=== PATIENT | male | born 1955 | race Caucasian/White ===

== ENCOUNTER → 2017-06-01 | Outpatient (CLI) | payer OTHER ==
[~2017-06-01] MED LIST: ATV2 PO; GADAVIST IV PRN
--- NOTE | 2017-06-01 12:41 | DIAGNOSTIC IMAGING REPORT ---
PROSTATE MRI COMBO CLINICAL HISTORY: 62 years-old Male presenting with R97.20 enlarged prostate and elevated PSA. History of negative biopsies 6 years ago. TECHNIQUE: Multisequence, multiplanar MR imaging of the prostate was performed before and after the administration of intravenous contrast. Additional postprocessing was performed on a separate [employer] workstation by the radiologist for 3-D volumetric segmentation of the prostate and contouring of region(s) of interest (FRITZ) for targeting. IV contrast: The patient was administered 9 cc of intravenous Gadavist COMPARISON: None. FINDINGS: Prostate: The prostate measures 5.2 x 4.6 x 5.2 cm cm (DynaCAD prostate boundary segmentation volume 58.5 mL). Moderate changes of benign prostatic hyperplasia. Precontrast T1 weighted imaging demonstrates no evidence of intrinsic T1 hyperintensity to suggest hemorrhage. There are no suspicious foci of restricted water diffusion within the peripheral zone. A nonmass-like focus of decreased T2 signal within the left peripheral zone, likely represent an area of scarring. Within the transitional/central zone, there are no suspicious masses and no areas of suspicious restricted water diffusion. PI-RADS: 2. Clinically significant cancer is unlikely due to be present. Seminal vesicles normal. Bladder: Normal. Bowel: There is sigmoid diverticulosis. Peritoneum: No free fluid in the pelvis. Lymph nodes: No lymphadenopathy in the visualized portion of the pelvis. Vasculature: Iliac vessels patent. Abdominal wall: Normal. Osseous structures: Normal bone marrow signal intensity. IMPRESSION: 1. BI-RADS 2 examination. A clinically significant cancer is unlikely to be present. 2. Benign prostatic hyperplasia. Electronically signed by: Dheeraj Loya M.D. 06/01/2017 12:40 PM Dictated Date/Time: 06/01/2017 12:25 PM
== END | disposition home or self-care (01) ==
LOC: C.MRIBC 10:21
PROVIDERS: ATTEND Urology
DX: N40.1 Benign prostatic hyperplasia with lower urinary tract symptoms (principal); R97.20 Elevated prostate specific antigen [PSA]

== ENCOUNTER 2022-06-27 05:10 | Observation (INO) ==
--- NOTE | 2022-06-01 11:00 | PAT Medication Instructions ---
Medication Instructions Date of Service June 01, 2022 Home Medications Medication Instructions Recorded sildenafil 100 mg tablet 100 mg PO DAILY PRN sexual 07/20/21 activity #20 tabs lorazepam 2 mg tablet (Ativan) 2 mg PO HS naproxen sodium 220 mg capsule (Aleve) 220 mg PO Q8H PRN Pain sildenafil 100 mg tablet 100 mg PO DAILY PRN sexual activity tamsulosin 0.4 mg capsule (Flomax) 0.4 mg PO HS ASK your surgeon for instructions naproxen sodium 220 mg capsule (Aleve) 220 mg PO Q8H PRN Pain STOP taking 24 hours before surgery sildenafil 100 mg tablet 100 mg PO DAILY PRN sexual activity Take evening before surgery lorazepam 2 mg tablet (Ativan) 2 mg PO HS tamsulosin 0.4 mg capsule (Flomax) 0.4 mg PO HS OTHERWISE NOTHING TO EAT OR DRINK AFTER MIDNIGHT Other Notes If you have any questions please call us at [phone] or [phone] or [phone] or [phone]
--- NOTE | 2022-06-05 10:03 | History & Physical Report ---
Date of Service June 05, 2022 date of surgery: 06/27/22 Procedure: Right Knee Poly Exchange Surgeon: Osorio Guardado Assessment & Plan (1) Painful total knee replacement, right: Plan: Patient presented for preop evaluation prior to his right knee poly exchange. He is having pain in his knee since January, has a history of knee replacement in 2010. CT scan which did not show any acute findings of his knee. Discussed care with Dr. Guardado, he like to proceed with surgical invention. Plan to be right knee arthrotomy with poly exchange. Plan on aspirin 81 mg twice a day for 1 month postop. Patient like to be outpatient with home health physical therapy follow-up 2 weeks after surgery, sooner if he is having problems The risks and benefits have been discussed including, but not limited to, risk of infection, nerve injury, stiffness, loss of motion, failure to improve, etc. Reasonable outcomes and options of treatment were discussed. An explanation of appropriate alternatives to the procedure that may be advantageous were discussed and their risks and benefits, as well as the risks and benefits of not proceeding with treatment. I offered to answer any additional inquiries concerning the treatment involved. All the patient's questions were answered. The patient is agreeable, understanding of the treatment plan and alternatives, and wishes to proceed with the treatment plan. History of Present Illness Chief Complaint: right knee pain Primary Care Provider: Cora Smith Sai Juares is a pleasant 67-year-old male who presents for preop evaluation prior to his right knee poly exchange. He has a history of a right total knee replacement in 2010 and subsequently had manipulation under anesthesia a few months later. He was doing very well up until January of this past year and began having increased pain. He underwent CT scan did not show any acute findings, on examination he did have laxity noted with valgus and varus stress. He discussed these findings with Dr. Guardado, would like to proceed with right knee poly exchange Allergies Allergy/AdvReac Type Severity Reaction Status Date / Time No Known Allergies Allergy Verified 06/01/22 08:54 Home Medications Medication Instructions Recorded Confirmed Type lorazepam 2 mg tablet (Ativan) 2 mg PO HS 09/10/18 06/01/22 History naproxen sodium 220 mg capsule 220 mg PO Q8H PRN Pain 09/10/18 06/01/22 History (Aleve) sildenafil 100 mg tablet 100 mg PO DAILY PRN sexual 07/20/21 06/01/22 Rx activity #20 tabs tamsulosin 0.4 mg capsule (Flomax) 0.4 mg PO HS 06/01/22 06/01/22 History Past Med/Surg History Medical History BPH (benign prostatic hyperplasia) Hx of fracture of pelvis 20+ YRS AGO NO SURGERY Hx of migraines Surgical History H/O blepharoplasty H/O elbow surgery R/L TENDON SURGERY Hamstring tear LEFT>REPAIRED History of colonoscopy History of esophagogastroduodenoscopy (EGD) History of tonsillectomy History of tooth extraction History of total knee replacement RIGHT Hx of prostate biopsy Presence of IVC filter PLACED 20+ YRS AGO S/P PELVIC FRACTURE S/P surgical manipulation of knee joint RT Family History Father No problems noted. Sister Family hx of colon cancer Grandfather (Maternal) Family hx of colon cancer Other No family history of adverse response to anesthesia Social History Smoking Status: Never smoker Second Hand Exposure: No; Hx Alcohol Use: No Hx Substance Use: No Preferred Language: Barbadian Communication Ability: Effective Cooper Apprentice Required: No Beliefs That Will Affect Care: None Current Living Situation: Alone Feels Safe at Home: Yes Safety Concerns: Feels Safe At This Time Assistive Devices: None Review of Systems Review of Systems: All systems reviewed & are unremarkable except as noted in HPI & below Constitutional: no fever, no chills and no sweats Respiratory: no cough and no dyspnea Cardiovascular: no chest pain, no dyspnea and no orthopnea Gastrointestinal: no abdominal pain, no nausea and no vomiting Musculoskeletal: as per Subjective / HPI Physical Exam Physical Exam: HT: 6ft WT: 77.1KG Constitutional: WD/WN, vitals as above no acute distress Respiratory: normal respiratory effort, lungs clear to auscultation no respiratory distress, no labored breathing and does not use accessory muscles Cardiovascular: RRR, no murmur, no edema Gastrointestinal (Abdomen): normal bowel sounds, soft, nontender, no hepatosplenomegaly Musculoskeletal: Knee: + knee abnormal to inspection (RIGHT KNEE: ), + surgical incision (well healed portals), + limited ROM of knee (ROM 0/0/110) and + joint line tenderness (medial joint line); no deformity, no effusion (+1 effusion), no skin erythema, no ecchymosis, no crepitation with knee ROM, no valgus laxity and no varus laxity Results & Data Results & Data Diagnostic Findings Radiographs reveal a cemented total knee replacement arthroplasty in acceptable position and alignment. No evidence of loosening or loss of fixation is noted. The patella is tracking well. ASSESSMENT: status post cemented posterior stabilized total knee replacement arthroplasty.
--- NOTE | 2022-06-06 13:31 | Anesthesiology Consultation ---
Date of Service June 06, 2022 Assessment & Plan (1) Encounter for pre-operative examination: - COVID positive 06/06/22: pt was notified of result and to follow current CDC quarantine guidelines, to contact his PCP. Pt will be > 15 days from surgery if symptoms remain mild and resolve by day before surgery. PAT testing faxed to PCP. - Pt was advised to contact his PCP regarding pharyngitis and low grade temperature today. He is to call office if symptoms are not resolved prior to surgery. - Outpatient joint pathway: Per surgeon and patient, plan for outpatient joint program. Upon review of chart and discussion with Dr. Mascorro, patient is acceptable outpatient joint candidate for this procedure. Kyree with surgeon's office. Chart Review Chart Review: Acceptable Risk for Surgery and Patient seen in Pre Admission Testing Teaching & Discussion Pre-Anesthesia Teaching/Discussion Notes: Instructed NPO after midnight before surgery, except medications with 15 cc of water. Medication instructions provided according to the PAT guidelines. History Surgery Operation Date: 06/27/22 12:15 Proposed Procedures p OP: Right Knee Poly Exchange - Osorio Guardado DO Height/Weight Height: 6 ft Weight: 77.111 kg Allergies Allergy/AdvReac Type Severity Reaction Status Date / Time No Known Allergies Allergy Verified 06/01/22 08:54 Medications Home Medications Medication Instructions Recorded Confirmed Last Taken lorazepam 2 mg tablet (Ativan) 2 mg PO HS 09/10/18 06/01/22 09/25/18 21:00 naproxen sodium 220 mg capsule 220 mg PO Q8H PRN Pain 09/10/18 06/01/22 Unknown (Aleve) sildenafil 100 mg tablet 100 mg PO DAILY PRN sexual 07/20/21 06/01/22 Unknown activity #20 tabs tamsulosin 0.4 mg capsule (Flomax) 0.4 mg PO HS 06/01/22 06/01/22 Unknown Past Medical History Medical History BPH (benign prostatic hyperplasia) Hx of fracture of pelvis 20+ YRS AGO NO SURGERY Hx of migraines Patient denies h/o stroke, seizures, heart attack, heart failure, DM, HTN, blood clots or blood transfusions. Exercise / Class Metabolic Activity II 4-5 Yardwork/Stairs/Walk up hill (denies chest discomfort or shortness of breath with 1 FOS) Past Family History Family History Father No problems noted. Sister Family hx of colon cancer Grandfather (Maternal) Family hx of colon cancer Other No family history of adverse response to anesthesia Past Surgical History Surgical History H/O blepharoplasty H/O elbow surgery R/L TENDON SURGERY Hamstring tear LEFT>REPAIRED History of colonoscopy History of esophagogastroduodenoscopy (EGD) History of tonsillectomy History of tooth extraction History of total knee replacement RIGHT Hx of prostate biopsy Presence of IVC filter PLACED 20+ YRS AGO S/P PELVIC FRACTURE S/P surgical manipulation of knee joint RT Past Anesthesia History No Hx of Anesthesia Complications and No Family Hx of Anesthesia Complications History of PONV No Hx of PONV and Hx of Motion Sickness Social History Smoking Status: Never smoker Do You Dip or Chew Tobacco: No Hx Alcohol Use: No Hx Substance Use: No substance use type: does not use Review of Systems Pt woke with pharyngitis this morning, denies any additional symptoms. Patient denies chest pain, shortness of breath, dyspnea on exertion, snoring, witnessed apneas, reflux, fever, chills, cough, wheezing, or palpitations. Physical Exam Vital Signs Vitals BP 128/79 P 67 TEMP 99.2 SP02 97% on RA RESP 18 Physical Full cervical extension range of motion without pain TMD 3.5 finger breadths Mallampati Score 2, nonerythematous, no exudate Dentition: left upper side implant; denies chipped or loose teeth, caps/crowns or bridges Lungs: normal respiratory effort. Clear throughout to auscultation, no adventitious breath sounds Cardiac: regular rate and rhythm, no murmurs noted Carotid arteries: negative bruit bilat Lab Results Anesthesia Preop Results Results Anesthesia Widget: WBC 6.36 K/ul (4.8-10.8) 06/06/22 Hgb 14.5 g/dl (14.0-18.0) 06/06/22 Hct 43.1 % (42.0-52.0) 06/06/22 Plt 163 K/uL (130-400) 06/06/22 Na 137 mmol/L (136-145) 06/06/22 K 4.4 mmol/L (3.5-5.1) 06/06/22 Cl 102 mmol/L (98-107) 06/06/22 CO2 32 mmol/L (21-32) 06/06/22 BUN 13 mg/dl (6-23) 06/06/22 Creat 0.76 mg/dl (0.6-1.4) 06/06/22 Glucose Level 97 mg/dl (70-99(Fasting)) 06/06/22 PT 10.8 Seconds (9.0-12.0) 06/06/22 PTT 29.6 Seconds (21.0-31.0) 06/06/22 INR 1.0 (0.9-1.1) 06/06/22 HA1c 5.5 % (4.5-5.6) 06/06/22 Urine Color Yellow 06/06/22 Urine Appearance Clear (Clear) 06/06/22 Urine pH 6.5 (4.5-7.5) 06/06/22 Urine Specific [place] 1.023 (1.000-1.030) 06/06/22 Urine Protein Negative (Negative) 06/06/22 Urine Glucose (UA) Negative (Negative) 06/06/22 Urine Ketones Negative (Negative) 06/06/22 Urine Blood Negative (Negative) 06/06/22 Urine Nitrite Negative (Negative) 06/06/22 Urine Bilirubin Negative (Negative) 06/06/22 Urine Urobilinogen Negative (Negative) 06/06/22 Urine Leukocyte Esterase Trace (Negative) H 06/06/22 Urine WBC (Auto) 1-5 /hpf (0-5) 06/06/22 Urine RBC (Auto) 0-4 /hpf (0-4) 06/06/22 Urine Hyaline Casts (Auto) 0 /lpf (0-5) 06/06/22 Urine Epithelial Cells (Auto) 0-5 /lpf (0-5) 06/06/22 Urine Bacteria (Auto) Negative (Negative) 06/06/22 COVID-19 PCR POSITIVE (Negative) A* 06/06/22 Blood Type A Positive 06/06/22 Antibody Screen NEGATIVE 06/06/22 Testing Electrocardiogram Date: 06/06/22 NSR, rate 61 bpm Chest X-Ray Date: 06/06/22 The cardiomediastinal silhouette is unremarkable. The lungs and pleural spaces are clear. There is no pneumothorax. There are healed left-sided rib fractures. IMPRESSION: No active disease in the chest. COVID-19 Risk Screen Screening Information COVID-19 Screen Date: 06/06/22 Exposure 21 Days Family/Household +COVID Last 21 Days: No Exposure 10 Days Any COVID Exposure Last 10 Days: No Symptoms Last 10 Days Experienced COVID Sx Last 10 Days: Yes Covid Sx 10 Day Pathway: If patient has symptoms, they should follow up with their PCP/surgeon to be COVID -19 tested and for further instructions related to their illness. Order COVID Testing COVID-19 Test Result pathway: * If the COVID Test is Negative, other risk factors are acceptable, and the patient is feeling well; proceed with procedure. * If the COVID-19 test is Positive: * Elective procedures will be cancelled/rescheduled per Policy 1096. * Urgent or Emergent procedures will need documentation that the procedure is medically necessary and precautions implemented per Policy 1096. Policies and Procedures Refer to Policy and Procedure 1096 for Initiation & Discontinuation of Transmission-Based Precautions for Confirmed and Suspected SARS-CoV-2 Infection which can be found on the Intranet in the Clinical Resources Manual by clicking on the link below: [email or web address] [email or web address]%[email or web address] [email or web address]#search=discontinuation%20of%20Transmission%2DBased + COVID 0-90 Days COVID + in Last 0-90 Days: Yes + COVID Test 0-10 Day: Yes +Covid 0-90 Day Pathway: Validate type of COVID-19 test (must secure test results for patient chart) * The patients test result MUST be a NAAT (i.e., molecular test not an antigen test). * NO other COVID-19 testing needed pre-op or day of surgery inside the 90 day window if prior positive test is acceptable per hospital Policy. Note: Home tests or antigen tests are NOT accepted per hospital policy. Provider to place an order for a MELANI (i.e., molecular test not an antigen test). Then proceed to the appropriate pathway based on the testing results. Elective Case +COVID-19 in the last 0-10 Days * Cancel/reschedule using Policy 1096. * Reschedule procedure 11 days if asymptomatic. * Reschedule procedure 15 days if mild symptoms. * Reschedule procedure 21 days if moderate to severe symptoms. Elective Case +COVID-19 in the last 11-90 Days * Proceed with procedure according to Policy 1096 * Reschedule procedure 11 days if asymptomatic. * Reschedule procedure 15 days if mild symptoms. * Reschedule procedure 21 days if moderate to severe symptoms. Urgent or Emergent Case * Provider will provide medical necessity statement in the H&P and patient will be scheduled on the (+) COVID/PUI pathway per hospital policy. Policies and Procedures Refer to Policy and Procedure 1096 for Initiation & Discontinuation of Transmission-Based Precautions for Confirmed and Suspected SARS-CoV-2 Infection which can be found on the Intranet in the Clinical Resources Manual by clicking on the link below: [email or web address]% 20and%20Discontinuation%20of%20Tr [email or web address].pdf#search=discontinuation%20of%20Transmission%2DBased
[2022-06-27] MEDS ORDERED: FAMOTIDINE 20 MG TAB PO SCH (06:00)
[2022-06-27] MEDS ORDERED: TRANEXAMIC ACID 1,000 MG **IV Intra-op IV SCH (06:00)
[2022-06-27] MEDS ORDERED: ceFAZolin 2000MG 2,000 MG/15 ML SYR IV SCH (06:00)
[2022-06-27] MEDS ORDERED: ACETAMINOPHEN 500 MG TAB PO SCH (06:00)
[2022-06-27] MEDS ORDERED: GABAPENTIN 300 MG CAP PO SCH (06:00)
[2022-06-27] MEDS ORDERED: LR 500ML BOLUS, THEN 15ML/HR IV SCH (06:00)
[2022-06-27] MEDS ORDERED: CeleBREX 200 MG CAP PO SCH (06:00)
[2022-06-27] MEDS ORDERED: dexAMETHasone 4 MG TAB PO SCH (06:00)
[2022-06-27] MEDS ORDERED: TRANEXAMIC ACID 1,000 MG **IV Pre-op IV SCH (06:00)
[2022-06-27] MEDS ORDERED: METOCLOPRAMIDE HCL 10 MG TABLET PO SCH (06:00)
[2022-06-27] MEDS ORDERED: ROPIVACAINE 0.5% 5 MG/ML 30 ML VIAL ONE (06:28)
[2022-06-27] MEDS ORDERED: fentaNYL citrate PF 100 MCG/2 ML VIAL ONE (06:41)
[2022-06-27] MEDS ORDERED: MIDAZOLAM HCL 1 MG/ML 2ML VIAL ONE ×2 (06:41→06:47)
[2022-06-27] MEDS ORDERED: ONDANSETRON INJ 2 MG/ML 2 ML VIAL ONE (06:46)
[2022-06-27] MEDS ORDERED: PROPOFOL IV EMULSION 10 MG/ML 20 ML VIAL IV ONE ×2 (06:46→07:45)
[2022-06-27] MEDS ORDERED: ATROPINE SULFATE 0.1 MG/ML 10ML SYR IV PRN (06:47)
[2022-06-27] MEDS ORDERED: HYDROmorphone INJ 2 MG/ML SYR/VIAL IV PRN (06:47)
[2022-06-27] MEDS ORDERED: ONDANSETRON INJ 2 MG/ML 2 ML VIAL IV PRN ×2 (06:47→11:45)
[2022-06-27] MEDS ORDERED: fentaNYL citrate PF 100 MCG/2 ML VIAL IV PRN (06:47)
[2022-06-27] MEDS ORDERED: ePHEDrine sulfate 50 MG/ML AMP IV PRN (06:47)
--- NOTE | 2022-06-27 07:07 | History & Physical Bridge Note ---
Date of Service June 27, 2022 History & Physical Bridge Note I have examined the patient, reviewed the History & Physical and in the interval since the performance of the History & Physical I have noted the following changes of clinical significance: no changes noted
[2022-06-27] MEDS ORDERED: ePHEDrine sulfate 50 MG/ML SYR ONE (07:45)
--- NOTE | 2022-06-27 08:11 | Operative Report ---
Post Operative Report Pre & Post Diagnosis Operation Date: 06/27/22 07:15 Pre-Op Diagnosis: Painful right total knee replacement Post-Op Diagnosis: Painful right total knee replacement I identified the patient and participated in the time-out.: Yes Procedure Operation Date: 06/27/22 07:15 Actual Procedures p Right Knee Poly Exchange(Right) revision poly component to a size 18 post for broken post- Osorio Guardado DO Surgeon Osorio Guardado DO Director Of Partner Marketing MARY Kendrick Estimated Blood Loss 5 Findings Consistent with Post-Op Diagnosis Patient presents with sudden onset of instability about his right total knee arthroplasty had been doing quite well for years and presents after having had a sudden change instability and exam was consistent of a broken post thyroid surgery this was verified and confirmed with broken post sitting in the intercondylar notch there is marked laxity both medial lateral collaterals Specimens Broken poly- Drains Medium bore Hemovac Anesthesia Type MAC Spinal Regional Complications none Disposition Accompanied Patient To Recovery: No Disposition: Recovery Room Indications Patient presents with a sudden onset instability after breaking his post involving his right total knee arthroplasty journey 2 patient presents for polychange Description of Procedure After injection of regional anesthesia the right lower extremity subsequently examined there is marked medial lateral collateral laxity with exam consistent with that of no solid endpoint opposed consistent with that of a broken post which was verified time of surgery after initiation of anesthesia the right lower extremity socially prepped and draped you sterile fashion surgeon's type anterior midline incision was made. Medial parapatellar incision was made the broken post was immediately identified the broken polywas removed the wound was irrigated copious muscle sterile saline solution Poly's size 15 and subsequent size 18 were trialed size 18 gave excellent stability full extension full flexion excellent stability throughout all mid ranges of flexion wound was then irrigated copious muscle sterile saline solution the final poly was placed and fixed into the tibial insert the medial parapatellar incision was closed #1 Vicryl in a running V lock subcu was closed with 2-0 Vicryl skin was closed with a running V lock a sterile compressive dressing was placed patient was taken to recovery in stable condition please note MARY Kendrick was active and has been case dissipated and exposure change mental poly and wound closure was necessary for the case I attest to the content of the Intraoperative Record and any orders documented therein. Any exceptions are noted below.
--- NOTE | 2022-06-27 09:36 | XRay Report ---
XR knee RT 1 or 2V routine HISTORY: 67 years-old Male Surgical Post Op right knee arthroplasty COMPARISON: 04/25/2022 TECHNIQUE: 2 views the right knee FINDINGS: Total joint arthroplasty with patellar resurfacing. Corticated ossification adjacent to the medial fe moral condyle. Expected postoperative soft tissue swelling with deep tissue air. No acute fracture, d islocation or unexpected opaque foreign body. IMPRESSION: Satisfactory alignment of the right knee total joint arthroplasty. ACT 112: Negative or not required by law. The above report was generated using voice recognition software. It may contain grammatical, syntax o r spelling errors. Electronically signed by: Marcin Ramos M.D. 06/27/2022 9:35 AM
--- NOTE | 2022-06-27 09:41 | Anesthesiology Progress Note ---
Date of Service June 27, 2022 Anesthesia Post Procedure Vital Signs Vital Signs: Temp Pulse Pulse Resp BP Pulse Ox O2 Del Method 06/27/22 09:10 53 L 13 119/79 98 Room Air 06/27/22 09:00 56 L 20 125/81 98 Room Air 06/27/22 09:30 36.3 C L 49 L 14 109/76 100 Room Air 06/27/22 09:20 54 L 13 116/77 98 Room Air 06/27/22 08:50 52 L 13 114/75 100 Oxymask 06/27/22 08:43 36.4 C L 55 L 14 126/76 99 Oxymask 06/27/22 05:41 36.5 C 53 L 20 118/73 98 Room Air O2 Flow Rate 06/27/22 09:10 06/27/22 09:00 06/27/22 09:30 06/27/22 09:20 06/27/22 08:50 3 06/27/22 08:43 5 06/27/22 05:41 Transfer of Care Handoff Completed per policy Notes Mental Status: alert / awake / arousable and participated in evaluation Patient Amnestic to Procedure: Yes Nausea / Vomiting: adequately controlled Pain: adequately controlled Airway Patency, RR, SpO2: stable & adequate BP & HR: stable & adequate Hydration State: stable & adequate Neuraxial Anesthesia: was administered and sensory block is resolving Anesthetic Complications: no major complications apparent and Pt Satisfied with anesthetic care
[2022-06-27] MEDS ORDERED: HYDROmorphone INJ 1 MG/ML SYRINGE IV PRN (11:45)
[2022-06-27] MEDS ORDERED: METOCLOPRAMIDE HCL INJ 5 MG/ML 2 ML VIAL IV PRN (11:45)
[2022-06-27] MEDS ORDERED: SODIUM CHLORIDE 0.9% 1000ML 1,000 ML IV SCH (11:45)
[2022-06-27] MEDS ORDERED: MAGNESIUM HYDROXIDE SUSP 30 ML UDC PO PRN (11:45)
[2022-06-27] MEDS ORDERED: bisacodyL 10 MG SUPP PR PRN (11:45)
[2022-06-27] MEDS ORDERED: diphenhydrAMINE Capsule 25 MG CAP PO PRN (11:45)
[2022-06-27] MEDS ORDERED: NALOXONE HCL 0.4 MG/1 ML VIAL/CARP IV PRN (11:45)
[2022-06-27] MEDS: ASPIRIN 81 MG ECTAB PO SCH ×2 (12:28→20:55)
[2022-06-27] MEDS: MULTIVITAMIN TAB PO SCH (12:28)
[2022-06-27] MEDS: DOCUSATE SODIUM 100 MG CAP PO SCH ×2 (12:28→20:55)
[2022-06-27] MEDS: KETOROLAC TROMETHAMINE 15 MG/ML VIAL IV SCH ×3 (12:50→23:00)
[2022-06-27] MEDS: ceFAZolin 2000MG 2,000 MG/15 ML SYR IV SCH ×2 (15:01→23:00)
[2022-06-27] MEDS: ACETAMINOPHEN 500 MG TAB PO SCH ×2 (15:16→23:02)
--- NOTE | 2022-06-27 15:37 | Urology Consultation ---
Date of Consultation June 27, 2022 Assessment & Plan (1) Acute urinary retention: (2) BPH (benign prostatic hyperplasia): Plan 67-year-old male admitted status post Right Knee Poly Exchange earlier today who developed postop urinary retention. Patient has noted difficulty with urination following his procedure earlier today. He was bladder scanned for 876ml earlier this morning, straight cathed for 800 mL. Since then, he has voided only a small amount and notes significant bladder discomfort. We discussed options for management of urinary retention. Discussed intermittent catheterizations versus indwelling john catheter. Also discussed further outpatient work-up with cystoscopy. Patient prefers John catheter placement for now. Nursing aware. We discussed that he could possibly have a voiding trial before discharge or we can arrange a voiding trial in our office as an outpatient. Will also arrange outpatient cystoscopy with Dr. Liu for further work-up. Continue tamsulosin. Thank you for allowing us to participate in the acute care of Mr. Bowden. Please contact us with any further questions, concerns, or changes in patient status. History of Present Illness Reason for Consultation: Urinary retention Attending Physician: Osorio Guardado, DO History of Present Illness 67-year-old male admitted status post Right Knee Poly Exchange earlier today with Dr. Guardado. Has previously followed with Dr. Liu. Hx of BPH and urinary retention. On tamsulosin. Patient has been voiding small amounts following surgery earlier today. He was bladder scanned for 876ml earlier this morning, straight cathed for 800 mL. Since then, he has voided approximately 100 mL. He reports hesitancy and having to push/strain. Stream is slow/weak. He does report bothersome urinary symptoms at baseline. He has been dealing with slow/weak stream and hesitancy at home. He does tell me he has previously straight cath for urinary retention issues. Allergies Allergy/AdvReac Type Severity Reaction Status Date / Time No Known Allergies Allergy Verified 06/27/22 05:37 Home Medications Medication Instructions Recorded Confirmed Type lorazepam 2 mg tablet (Ativan) 2 mg PO HS 09/10/18 06/27/22 History naproxen sodium 220 mg capsule 220 mg PO Q8H PRN Pain 09/10/18 06/27/22 History (Aleve) sildenafil 100 mg tablet 100 mg PO DAILY PRN sexual 07/20/21 06/27/22 Rx activity #20 tabs tamsulosin 0.4 mg capsule (Flomax) 0.4 mg PO HS 06/01/22 06/27/22 History Patient History Medical History BPH (benign prostatic hyperplasia) Hx of fracture of pelvis 20+ YRS AGO NO SURGERY Hx of migraines Surgical History H/O blepharoplasty H/O elbow surgery R/L TENDON SURGERY Hamstring tear LEFT>REPAIRED History of colonoscopy History of esophagogastroduodenoscopy (EGD) History of tonsillectomy History of tooth extraction History of total knee replacement RIGHT Hx of prostate biopsy Presence of IVC filter PLACED 20+ YRS AGO S/P PELVIC FRACTURE S/P surgical manipulation of knee joint RT Family History Father No problems noted. Sister Family hx of colon cancer Grandfather (Maternal) Family hx of colon cancer Other No family history of adverse response to anesthesia Social History Smoking Status: Never smoker Second Hand Exposure: No; Hx Alcohol Use: No Hx Substance Use: No Preferred Language: Luxembourgish Communication Ability: Effective Lift Supervisor Required: No Beliefs That Will Affect Care: None Current Living Situation: Alone Feels Safe at Home: Yes Assistive Devices: Cane and Walker Review of Systems Review of Systems: All systems reviewed & are unremarkable except as noted in HPI & below Physical Exam Constitutional: well developed and well nourished; no acute distress Respiratory: normal respiratory effort; no respiratory distress and no labored breathing Gastrointestinal (Abdomen): Percussion/Palpation: + abdomen tender (Mild s uprapubic tenderness with palpation) Musculoskeletal: Head/Neck/Chest: normocephalic JAVON wrap to RLE. Skin: No visible rashes or lesions to exposed skin areas Neurologic: awake Psychiatric: A+Ox3, euthymic affect Results & Data Vital Signs (Past 12 Hours) Vital Signs Temp Pulse Pulse Resp BP Pulse Ox O2 Del Method 06/27/22 14:15 36.8 C 68 16 128/72 97 Room Air 06/27/22 13:45 36.4 C L 73 16 134/76 96 Room Air 06/27/22 12:45 36.3 C L 62 16 122/85 96 Room Air 06/27/22 12:15 36.8 C 72 16 148/72 H 97 Room Air 06/27/22 11:45 36.8 C 65 16 156/77 H 97 Room Air 06/27/22 11:00 69 17 144/92 H 96 Room Air 06/27/22 10:15 36.3 C L 58 L 15 123/85 100 Room Air 06/27/22 09:10 53 L 13 119/79 98 Room Air 06/27/22 09:00 56 L 20 125/81 98 Room Air 06/27/22 10:30 36.3 C L 55 L 13 110/75 98 Room Air 06/27/22 10:00 36.3 C L 55 L 17 127/77 98 Room Air 06/27/22 09:45 36.3 C L 56 L 17 130/79 95 Room Air 06/27/22 09:30 36.3 C L 49 L 14 109/76 100 Room Air 06/27/22 09:20 54 L 13 116/77 98 Room Air 06/27/22 08:50 52 L 13 114/75 100 Oxymask 06/27/22 08:43 36.4 C L 55 L 14 126/76 99 Oxymask 06/27/22 05:41 36.5 C 53 L 20 118/73 98 Room Air O2 Flow Rate 06/27/22 14:15 06/27/22 13:45 06/27/22 12:45 06/27/22 12:15 06/27/22 11:45 06/27/22 11:00 06/27/22 10:15 06/27/22 09:10 06/27/22 09:00 06/27/22 10:30 06/27/22 10:00 06/27/22 09:45 06/27/22 09:30 06/27/22 09:20 06/27/22 08:50 3 06/27/22 08:43 5 06/27/22 05:41 PG Care Time/CCT Total # of Minutes Spent Total Time Spent with Patient: Total time spent is greater than 50% in coordination of care (as documented) at patient's floor/unit and/or counseling patient: Coding Level of Care Code 61996 INT INP/OBS CARE MIN Diagnoses Acute urinary retention R33.8 BPH (benign prostatic hyperplasia) N40.0
[2022-06-27] MEDS: oxyCODONE HCL IR 5 MG TAB (IMMEDIATE RELEASE) PO PRN (20:53)
[2022-06-27] MEDS ORDERED: TAMSULOSIN HCL 0.4 MG CAP PO SCH (21:00)
[2022-06-27] MEDS ORDERED: LORazepam 1 MG TAB PO SCH (21:00)
[2022-06-27] MEDS ORDERED: SENNA 8.6 MG TAB PO SCH (21:00)
[2022-06-28] MEDS: oxyCODONE HCL IR 5 MG TAB (IMMEDIATE RELEASE) PO PRN ×2 (02:20→07:23)
[2022-06-28] MEDS: ACETAMINOPHEN 500 MG TAB PO SCH (06:10)
[2022-06-28] MEDS: KETOROLAC TROMETHAMINE 15 MG/ML VIAL IV SCH (06:10)
[2022-06-28] MEDS: DOCUSATE SODIUM 100 MG CAP PO SCH (07:24)
[2022-06-28] MEDS: MULTIVITAMIN TAB PO SCH (07:25)
[2022-06-28] MEDS: ASPIRIN 81 MG ECTAB PO SCH (07:25)
[2022-06-28 08:26] LABS: Hematocrit (blood only) 36.9 % (42.0-52.0); Hemoglobin 13.1 g/dl (14.0-18.0); Mean Corpuscular Hgb Conc 35.5 g/dL (32.0-36.0); Mean Corpuscular Volume 87.2 fL (80.0-100.0); Mean Platelet Volume 9.9 fL (9.4-12.4); Platelet Count 159 K/uL (130-400); RDW Coefficient of Variation 13.8 % (11.5-14.5); RDW Standard Deviation 44.1 fL (36.4-46.3); Red Blood Count 4.23 M/uL (4.70-6.10); White Blood Count 9.03 K/ul (4.8-10.8)
[2022-06-28 08:53] LABS: Calcium 8.5 mg/dl (8.6-10.3); Creatinine Clr Calc Pharmacy 103.5 ml/min; Est GFR (African American) 110.4 ml/min; Est GFR (Non-African American) 95.2 ml/min; Potassium 3.9 mmol/L (3.5-5.1)
--- NOTE | 2022-06-28 09:26 | Orthopedic Progress Note ---
Date of Service June 28, 2022 Assessment & Plan (1) Painful total knee replacement, right: Plan: Postop day 1 status post right polyethylene bearing change secondary to painful right TKA/instability PT/OT protocols. Weightbearing as tolerated. DVT prophylaxis-aspirin p.o. twice daily, HEATHER Briones. Pain management as written. Discharge planning-patient is planning on doing his own physical therapy at home. He has had plenty of PT in the past of which she would like to just work on it himself. We discussed that he had over done his own therapy at home in the past and he understands that he needs to slowly work his way into it and follow physical therapy instructions today for the next week and then increase his activity as able. Plan for discharge to home today Admission and Anticipated Discharge Date Admission Date: June 27, 2022 Subjective Postop day 1 Patient sitting up in bed eating breakfast. No complaints this morning. Pain is controlled. He feels well. He is hoping to go home today. Physical Exam Physical Exam: Dressings are clean, dry, and intact. Calves are soft nontender. Neurovascular intact. Toes are mobile. He has good dorsiflexion and plantarflexion of the right foot. Results & Data Vital Signs (Past 12 Hours) Vital Signs Temp Pulse Resp BP BP Pulse Ox O2 Del Method 06/28/22 07:09 36.4 C L 51 L 18 113/72 99 Room Air 06/28/22 03:30 36.6 C 59 L 18 97/60 L 96 Room Air Laboratory Results Laboratory Results WBC 9.03 K/ul (4.8-10.8) 06/28/22 08:07 RBC 4.23 M/uL (4.70-6.10) L 06/28/22 08:07 Hgb 13.1 g/dl (14.0-18.0) L 06/28/22 08:07 Hct 36.9 % (42.0-52.0) L 06/28/22 08:07 MCV 87.2 fL (80.0-100.0) 06/28/22 08:07 MCH 31.0 pg (25.0-34.0) 06/28/22 08:07 MCHC 35.5 g/dL (32.0-36.0) 06/28/22 08:07 RDW Std Deviation 44.1 fL (36.4-46.3) 06/28/22 08:07 RDW Coeff of Maryana 13.8 % (11.5-14.5) 06/28/22 08:07 Plt Count 159 K/uL (130-400) 06/28/22 08:07 MPV 9.9 fL (9.4-12.4) 06/28/22 08:07 Sodium 138 mmol/L (136-145) 06/28/22 08:07 Potassium 3.9 mmol/L (3.5-5.1) 06/28/22 08:07 Chloride 104 mmol/L (98-107) 06/28/22 08:07 Carbon Dioxide 31 mmol/L (21-32) 06/28/22 08:07 Anion Gap 3 (3-11) 06/28/22 08:07 BUN 10 mg/dl (6-23) 06/28/22 08:07 Creatinine 0.77 mg/dl (0.6-1.4) 06/28/22 08:07 Est Cr Clr Drug Dosing 103.5 ml/min 06/28/22 08:07 Est GFR ( Amer) 110.4 ml/min 06/28/22 08:07 Est GFR (Non-Af Amer) 95.2 ml/min 06/28/22 08:07 BUN/Creatinine Ratio 13.0 (10-20) 06/28/22 08:07 Glucose 93 mg/dl (70-99(Fasting)) 06/28/22 08:07 Calcium 8.5 mg/dl (8.6-10.3) L 06/28/22 08:07 Impressions Knee X-Ray 06/27/22 08:50 XR knee RT 1 or 2V routine HISTORY: 67 years-old Male Surgical Post Op right knee arthroplasty COMPARISON: 04/25/2022 TECHNIQUE: 2 views the right knee FINDINGS: Total joint arthroplasty with patellar resurfacing. Corticated ossification adjacent to the medial femoral condyle. Expected postoperative soft tissue swelling with deep tissue air. No acute fracture, dislocation or unexpected opaque foreign body. IMPRESSION: Satisfactory alignment of the right knee total joint arthroplasty. ACT 112: Negative or not required by law. The above report was generated using voice recognition software. It may contain grammatical, syntax or spelling errors. Electronically signed by: Marcin Ramos M.D. 06/27/2022 9:35 AM
--- NOTE | 2022-06-28 13:38 | Discharge Summary ---
Date of Service date of discharge: June 28, 2022 date of admission: 06-27-22 Admission HPI Per Admitting Provider Mor is a pleasant 67-year-old male who presents for preop evaluation prior to his right knee poly exchange. He has a history of a right total knee replacement in 2010 and subsequently had manipulation under anesthesia a few months later. He was doing very well up until January of this past year and began having increased pain. He underwent CT scan did not show any acute findings, on examination he did have laxity noted with valgus and varus stress. He discussed these findings with Dr. Guardado, would like to proceed with right knee poly exchange Principal Diagnosis painful right total knee, broken poly Discharge Exam Musculoskeletal right knee: NVDI, calf SNT, negative marlene sign. DP palpable, able to wiggle toes/ankle movement without difficulty. GRACIE dressing clean dry and intact. expected post-operative bruising noted. Discharge Data Allergies Allergy/AdvReac Type Severity Reaction Status Date / Time No Known Allergies Allergy Verified 06/27/22 05:37 Consultations 06/27/22 14:30 Consult Urology Routine Procedures Performed Operation Date: 06/27/22 07:15 Actual Procedures p Right Knee Poly Exchange(Right) - Osorio Guardado, Ordered Studies 06/27/22 05:00 US - OR guided needle placemen Routine Hospital Course (1) Painful total knee replacement, right: Postop day 1 status post right polyethylene bearing change secondary to painful right TKA/instability PT/OT protocols. Weightbearing as tolerated. DVT prophylaxis-aspirin p.o. twice daily, SCDs, HEATHER andrade. Pain management as written. Discharge planning-patient is planning on doing his own physical therapy at home. He has had plenty of PT in the past of which she would like to just work on it himself. We discussed that he had over done his own therapy at home in the past and he understands that he needs to slowly work his way into it and follow physical therapy instructions today for the next week and then increase his activity as able. Plan for discharge to home today Total Time Total Time Spent Total Time Spent (In Minutes): 20 Discharge Plan Discharge Items Patient Disposition: Home - Self-Care Reason For Visit: Right Knee Retained Hardware Discharge Diagnosis: poly exchange right knee Activity: Per Instructions section Weightbearing: Right weightbearing Weightbearing Comment: WBAT with walker Non-emergency contact: Surgeon Call non-emergency contact if: you have any medication questions, your temperature is above 101, your wound has increased redness, your wound has increased drainage and your wound pain has increased Follow-up/Referrals: Ruben Liu MD [Physician] - 07/06/22 9:25 am Osorio Guardado DO [Surgeon] - (Follow-up with Dr. Guardado or his PA in 2 weeks from the day of your surgery for your first postoperative visit) Cora Gibbs D.O. [Primary Care Provider] - Diet: Regular Addtl Attending Provider Instructions: ACTIVITY RECOMMENDATIONS: SELF CARE INSTRUCTIONS AFTER TOTAL KNEE REPLACEMENT A. You may need to continue a physical therapy program after discharge from the hospital. There are several options available to you. Your doctor will assist you in selecting the best one for you. 1. An out-patient facility 2 to 3 times a week for therapy or home therapy. 2. Continue working on all exercises taught to you in the hospital. Your goals should be to increase bending of your knee to 90 degrees and beyond and to fully straighten your knee. B. You may progress at your own pace from walking with a walker or crutches to a cane; then to no assistive devices. C. Make walking a part of your daily routine. Be up as much as comfortable with rest periods throughout the day. Rest with leg elevation is very important. Use the ice wrap frequently for the first 3-4 weeks. D. There are no restrictions on activities. You may ride in a car, shop, participate in call or contact centre coach and all social activities. E. Wear the long elastic stockings (HEATHER hose) 20 hours a day for 2 weeks after surgery. They can be removed several times a day for laundering and for a bath. F. You may shower, no tub baths until cleared by your doctor. SPECIAL CARE INSTRUCTIONS: VERY IMPORTANT TO READ AND REVIEW A. There are a few signs you need to watch for after you are home. Call [facility] if you notice any of the followin. Increased severe knee pain. Some pain is expected especially when you exercise. 2. Increased swelling in your leg or knee; pain or swelling of the calf muscle in either lower leg. 3. Any fluid drainage from the incision. 4. Shortness of breath or chest pain. B. Please call [facility] at if you have any concerns or questions about your operation or recovery. The doctor or his nurse will return your call promptly. C. You must take antibiotics before dental work, bladder, bowel or other surgery. Your doctor will provide you with a permanent care to carry describing this precaution. IMPORTANT: * REMEMBER TO TAKE ASPIRIN, 81 MG, TWICE DAILY FOR 4 WEEKS UNLESS OTHERWISE DIRECTED. THIS IS YOUR BLOOD THINNER. * HIGH RISK PATIENTS MAY BE PRESCRIBED A STRONGER BLOOD THINNER. THIS WILL BE PROVIDED AT DISCHARGE. * CALL IF INCREASED PAIN, REDNESS, DRAINAGE OR FEVER GREATER THAT 101. * WEAR HEATHER HOSE 20 HOURS PER DAY FOR 2 WEEKS. DRESSING INSTRUCTIONS * GRACIE Dressing- This is a large suction dressing covering your incision. This will help pull any excess drainage from the wound and allow your incision to heal properly. You may shower with this if you can keep the unit outside of the shower. If any bleeding or leakage is noted please call your doctor's office. This will remain on your incision for 7 days and then should be removed. This can be done yourself or by the home nursing staff if applicable. The entire unit is disposable once removed. Once removed, keep incision clean and dry. If redness or drainage is noted, please call your surgeon. ONCE GRACIE IS REMOVED, FOLLOW THESE INSTRUCTIONS: DERMABOND Prineo- This is a mesh tape dressing that is covered with glue. It should remain in place until the incision is properly healed, usually 10-14 days. This dressing is designed to naturally slough off. You may trim the excess mesh tape as it peels off. Incision may be briefly wet in a shower. Dry immediately by blotting with a clean, dry towel. Do not bath or swim until instructed by your doctor. Do not scratch, rub, or pick at the dressing. Do not apply any topical ointments or lotions until dressing is completely removed and/or instructed by your doctor. There may be a small piece of suture material at one end of your incision. Do not pull or trim this. If it is bothersome or catching on clothing, you may cover it with a band-aid. IF INCISION IS LEAKING THROUGH DRESSING, CALL THE OFFICE . FOLLOW UP VISIT: If appointment is not already scheduled: Please call [facility] to make a follow-up appointment for 2 weeks after your surgery at . Addtl Director Of Restaurants Provider Instructions: You are scheduled to see Dr. Liu in the urology office for a cystoscopy and catheter removal on 07/06/22 at 9:25am. Please call the urology office at [phone] with any questions, concerns or need to reschedule appointments for any reason. We are happy to assist you Camacho Catheter or Suprapubic Catheter care: Keep the catheter well secured with either a leg back or leg strap with large bag. Empty your bag when it's about half full. You may notice some blood in the bag. This is normal after surgery and while the catheter is in place. Use mild soap (such as Dove or Dial) and water to wash the catheter and the head of your penis daily, or more frequently if needed. You may shower as normal. Please avoid tub baths or soaking until catheter removed and incisions well healed. Call [facility] at [phone] right away if you have any of the following: Heavy bleeding, clots, or bright red blood from the catheter Catheter that falls out or stops draining Foul-smelling discharge from your catheter Stand-Alone Forms: [facility], Smoking Cessation Medications and DC Order Prescriptions: New acetaminophen [Tylenol Extra Strength] 500 mg Tablet 1,000 mg PO Q8 14 Days Qty: 84 0RF aspirin 81 mg Tablet,Delayed Release (Dr/Ec) 81 mg PO BID 30 Days Qty: 60 0RF celecoxib [Celebrex] 200 mg Capsule 200 mg PO BID 14 Days Qty: 28 0RF polyethylene glycol 3350 [Miralax] 17 gram powder in packet 17 g PO DAILY PRN (Reason: constipation) Qty: 5 0RF cefadroxil 500 mg capsule 500 mg PO BID Qty: 14 0RF oxycodone 5 mg tablet 5 mg PO Q4H MDD 6 PRN (Reason: pain) Qty: 30 0RF Continued sildenafil 100 mg tablet 100 mg PO DAILY PRN (Reason: sexual activity) Qty: 20 11RF Rx Instructions: administer 30 minutes to 4 hours before activity lorazepam [Ativan] 2 mg Tablet 2 mg PO HS tamsulosin [Flomax] 0.4 mg Capsule 0.4 mg PO HS Discontinued naproxen sodium [Aleve] 220 mg Capsule 220 mg PO Q8H PRN (Reason: Pain) Discharge Orders: Discharge Order (Routine); Ordered 06/28/22 Ordered By: Fito Carmichael Admission Data Admit Date/Time: 06/27/22 08:50 Attending Provider: Osorio Guardado Admit Provider: Osorio Guardado Primary Care Provider: Cora Gibbs Other Providers: Ruben Liu Other Interventions: Discharge Summary Assessment (RN) Last Done: 06/28/22 11:03
[2022-06-28] MEDS ORDERED: CeleBREX 200 MG CAP PO SCH (21:00)
== END 2022-06-28 11:43 | disposition home or self-care (01) ==
LOC: ASU 05:10 → PACUINP 05:10 → 3W 11:44

== ENCOUNTER 2023-02-27 12:26 | Observation (INO) ==
--- NOTE | 2023-02-20 08:52 | Anesthesiology Consultation ---
Date of Service February 20, 2023 Assessment & Plan (1) Encounter for pre-operative examination: - Per distiller on 02/20/2023: No known infectious disease contacts, current infectious disease symptoms in past 10 days or COVID positive test result in the past 30 days. Chart Review Chart Review: Acceptable Risk for Surgery and Patient NOT seen in Pre Admission Testing History Surgery Operation Date: 02/27/23 15:10 Proposed Procedures p TURP (Transurethral Resection of the Prostate) - Ruben Liu MD Height/Weight Height: 6 ft Weight: 79.379 kg Allergies Allergy/AdvReac Type Severity Reaction Status Date / Time No Known Allergies Allergy Verified 02/20/23 07:55 Medications Home Medications Medication Instructions Recorded Confirmed Last Taken lorazepam 2 mg tablet (Ativan) 2 mg PO HS 09/10/18 02/20/23 06/26/22 17:00 sildenafil 100 mg tablet 100 mg PO DAILY PRN sexual 07/20/21 02/20/23 06/13/22 activity #20 tabs tamsulosin 0.4 mg capsule (Flomax) 0.4 mg PO HS 06/01/22 02/20/23 06/25/22 ciprofloxacin HCl 500 mg tablet 500 mg PO BID 4 days #8 tabs 02/05/23 02/20/23 Unknown Past Medical History Medical History Hx of migraines BPH (benign prostatic hyperplasia) Hx of fracture of pelvis 20+ YRS AGO NO SURGERY Past Family History Family History Father No problems noted. Sister Family hx of colon cancer Grandfather (Maternal) Family hx of colon cancer Other No family history of adverse response to anesthesia Past Surgical History Surgical History History of revision of total knee arthroplasty right Hamstring tear LEFT>REPAIRED S/P surgical manipulation of knee joint RT Hx of prostate biopsy History of esophagogastroduodenoscopy (EGD) History of tooth extraction History of tonsillectomy H/O blepharoplasty Presence of IVC filter PLACED 20+ YRS AGO S/P PELVIC FRACTURE History of colonoscopy H/O elbow surgery R/L TENDON SURGERY History of total knee replacement RIGHT Social History Smoking Status: Never smoker Do You Dip or Chew Tobacco: No Hx Alcohol Use: Yes alcohol intake frequency: holidays/special occasions only Hx Substance Use: No substance use type: does not use Lab Results Anesthesia Preop Results Results Anesthesia Widget: WBC 8.24 K/ul (4.8-10.8) 02/05/23 Hgb 13.8 g/dl (14.0-18.0) L 02/05/23 Hct 40.2 % (42.0-52.0) L 02/05/23 Plt 271 K/uL (130-400) 02/05/23 Na 140 mmol/L (136-145) 02/05/23 K 4.2 mmol/L (3.5-5.1) 02/05/23 Cl 104 mmol/L (98-107) 02/05/23 CO2 32 mmol/L (21-32) 02/05/23 BUN 14 mg/dl (6-23) 02/05/23 Creat 0.75 mg/dl (0.6-1.4) 02/05/23 Glucose Level 94 mg/dl (70-99(Fasting)) 02/05/23 Urine Appearance Clear 02/05/23 Testing Electrocardiogram Date: 06/06/22 NSR, rate 61 bpm Chest X-Ray Date: 06/06/22 The cardiomediastinal silhouette is unremarkable. The lungs and pleural spaces are clear. There is no pneumothorax. There are healed left-sided rib fractures. IMPRESSION: No active disease in the chest.
[~2023-02-27 12:26] MED LIST changes: +ACETAMINOPHEN 1000 MG/100 ML IV IV ONE; -ATV2 PO; +CIPROFLOXACIN / D5W 400 MG/200 ML BAG IV SCH; -GADAVIST IV PRN; +LR 15ML/HR IV SCH
[2023-02-27] MEDS ORDERED: ATROPINE SULFATE 0.1 MG/ML 10ML SYR IV PRN (14:27)
[2023-02-27] MEDS ORDERED: ONDANSETRON INJ 2 MG/ML 2 ML VIAL IV PRN (14:27)
[2023-02-27] MEDS ORDERED: ePHEDrine sulfate 50 MG/ML AMP IV PRN (14:27)
--- NOTE | 2023-02-27 15:12 | History & Physical Bridge Note ---
Date of Service February 27, 2023 History & Physical Bridge Note I have examined the patient, reviewed the History & Physical and in the interval since the performance of the History & Physical I have noted the following changes of clinical significance: no changes noted
[2023-02-27] MEDS ORDERED: DEXAMETHASONE SOD INJ 4 MG/ML VIAL ONE (16:02)
[2023-02-27] MEDS ORDERED: LIDOCAINE 2% 2 ML VIAL/AMP(20MG/ML) INFIL ONE (16:02)
[2023-02-27] MEDS ORDERED: ONDANSETRON INJ 2 MG/ML 2 ML VIAL ONE (16:02)
[2023-02-27] MEDS ORDERED: PROPOFOL IV EMULSION 10 MG/ML 20 ML VIAL IV ONE (16:02)
[2023-02-27] MEDS ORDERED: MIDAZOLAM HCL 1 MG/ML 2ML VIAL ONE (16:03)
[2023-02-27] MEDS ORDERED: fentaNYL citrate PF 100 MCG/2 ML VIAL ONE (16:03)
[2023-02-27] MEDS ORDERED: GLYCOPYRROLATE 0.2 MG/ML VIAL ONE (16:47)
[2023-02-27] MEDS: fentaNYL citrate PF 100 MCG/2 ML VIAL IV PRN ×2 (17:26→17:31)
--- NOTE | 2023-02-27 18:19 | Anesthesiology Progress Note ---
Date of Service February 27, 2023 Anesthesia Post Procedure Vital Signs Vital Signs: Temp Pulse Resp BP Pulse Ox O2 Del Method O2 Flow Rate 02/27/23 17:50 58 L 20 144/98 H 97 Room Air 0 02/27/23 17:40 58 L 16 148/93 H 97 Room Air 0 02/27/23 17:30 59 L 10 L 136/81 99 Room Air 0 02/27/23 17:21 97.3 F L 62 16 136/91 99 Oxymask 5 02/27/23 12:47 97.3 F L 57 L 20 107/82 98 Room Air Pain Intensity Abdomen: Pain Intensity: 3 Transfer of Care Handoff Completed per policy Notes Mental Status: alert / awake / arousable and participated in evaluation Patient Amnestic to Procedure: Yes Nausea / Vomiting: adequately controlled Pain: adequately controlled Airway Patency, RR, SpO2: stable & adequate BP & HR: stable & adequate Hydration State: stable & adequate Anesthetic Complications: no major complications apparent and Pt Satisfied with anesthetic care
[2023-02-27] MEDS ORDERED: traMADol HCL 50 MG TABLET PO PRN (18:43)
[2023-02-27] MEDS: ACETAMINOPHEN 325 MG TAB PO PRN (19:50)
[2023-02-27] MEDS ORDERED: PHENAZOPYRIDINE HCL 100 MG TAB PO PRN (20:25)
[2023-02-27] MEDS: SODIUM CHLORIDE 0.9% 1,000 ML IV SCH (20:49)
[2023-02-27] MEDS: DOCUSATE SODIUM 100 MG CAP PO SCH (20:51)
[2023-02-27] MEDS ORDERED: LORazepam 1 MG TAB PO SCH (21:00)
[2023-02-28] MEDS: SODIUM CHLORIDE 0.9% 1,000 ML IV SCH (03:00)
[2023-02-28] MEDS: ACETAMINOPHEN 325 MG TAB PO PRN ×2 (03:01→08:51)
[2023-02-28] MEDS ORDERED: CIPROFLOXACIN / D5W 400 MG/200 ML BAG IV SCH (04:00)
[2023-02-28 07:51] LABS: Hemoglobin 12.8 g/dl (14.0-18.0); Mean Corpuscular Hgb Conc 34.6 g/dL (32.0-36.0); Mean Corpuscular Volume 86.7 fL (80.0-100.0); Mean Platelet Volume 10.5 fL (9.4-12.4); Platelet Count 151 K/uL (130-400); Red Blood Count 4.27 M/uL (4.70-6.10)
[2023-02-28] MEDS: DOCUSATE SODIUM 100 MG CAP PO SCH (07:56)
[2023-02-28 08:11] LABS: BUN Creatinine Ratio 14.3 (10-20); Calcium 8.3 mg/dl (8.6-10.3); Creatinine Clr Calc Pharmacy 112.1 ml/min; Est GFR (African American) 114.8 ml/min
--- NOTE | 2023-02-28 08:11 | Urology Progress Note ---
Date of Service February 28, 2023 Assessment & Plan (1) Benign localized prostatic hyperplasia with lower urinary tract symptoms (LUTS): Plan: BPH status post TURPpostop day #1 Voiding trial this morning discharge home Admission and Anticipated Discharge Date Admission Date: February 27, 2023 Subjective No major issues overnight Good urine output Some dysuria but that resolved after Azo Anxious for voiding trial and discharge home Physical Exam Physical Exam: Urine quite clear, minimally cranberry colored, no clots Results & Data Vital Signs (Past 12 Hours) Vital Signs Temp Pulse Resp BP Pulse Ox O2 Del Method 02/28/23 07:24 36.5 C 55 L 14 115/71 98 Room Air 02/28/23 06:11 36.9 C 61 16 102/66 96 Room Air 02/28/23 01:47 36.7 C 77 16 101/62 96 Room Air 02/27/23 21:37 36.6 C 55 L 18 102/67 95 Room Air 02/27/23 20:35 36.6 C 55 L 18 113/70 97 Room Air PG Care Time/CCT Total # of Minutes Spent Total Time Spent with Patient: Total time spent is greater than 50% in coordination of care (as documented) at patient's floor/unit and/or counseling patient: Coding Level of Care Code None Diagnoses Benign localized prostatic hyperplasia with lower urinary tract symptoms (LUTS) N40.1
--- NOTE | 2023-02-28 10:28 | Discharge Summary ---
Date of Service February 28, 2023 Admission HPI Per Admitting Provider Patient with BPH and urinary retention here for transurethral resection of prostate. Admission Exam Per Admitting Provider Constitutional well developed and well nourished; no acute distress and not ill appearing Eyes no eyelid abnormality ENMT Ears: no external ear abnormality Neck normal visual inspection and trachea midline Respiratory normal respiratory effort and able to speak in complete sentences; no respiratory distress and no audible wheezes Gastrointestinal (Abdomen) Inspection/Auscultation: abdomen normal to inspection; abdomen not distended Musculoskeletal Head/Neck/Chest: normocephalic and head atraumatic Moves all extremities without difficulty. Skin No visible rashes, lesions, or wounds noted. Neurologic moves all extremities and awake Psychiatric Orientation: alert, oriented x 3 and cooperative Affect: euthymic affect Principal Diagnosis BPH, urinary retention Discharge Exam Constitutional well developed and well nourished; no acute distress Respiratory normal respiratory effort; no respiratory distress and no labored breathing Gastrointestinal (Abdomen) Inspection/Auscultation: abdomen normal to inspection Musculoskeletal Head/Neck/Chest: normocephalic Neurologic moves all extremities and awake Psychiatric Orientation: alert and oriented x 3 Discharge Data Allergies Allergy/AdvReac Type Severity Reaction Status Date / Time No Known Allergies Allergy Verified 02/27/23 12:46 Procedures Performed Operation Date: 02/27/23 14:30 Actual Procedures p Transurethral Resection of the Prostate(Not Applicable) - Ruben Liu MD Hospital Course (1) Benign localized prostatic hyperplasia with lower urinary tract symptoms (LUTS): BPH status post TURPpostop day #1 Voiding trial this morning discharge home Patient voided after catheter removal Ready for discharge now-orders placed Expected clinical course reviewed, all questions answered Will arrange outpatient follow-up Total Time Total Time Spent Total Time Spent (In Minutes): 29 Discharge Plan Discharge Items Patient Disposition: Home - Self-Care Reason For Visit: BPH, URINARY RETENTION Discharge Diagnosis: BPH, Urinary retention Activity: Per Instructions section Lifting: No more than 25 pounds Bathing Comment: Okay to shower after discharge, no tub bath or soaking Sexual Activity: When tolerated Exercise/Sports: Gradually increase as tolerated Driving/Machine Use: Resume 1 day after discharge Non-emergency contact: Surgeon and Urologist Call non-emergency contact if: your pain is not controlled and your temperature is above 101 Follow-up/Referrals: Ruben Liu MD [Physician] - 04/03/23 11:30 am Cora Gibbs D.[email or web address] [Primary Care Provider] - Diet: Regular Addtl Attending Provider Instructions: Please take all medications as prescribed and keep all follow-ups as scheduled. Please call our office at [phone] with any questions, concerns or need to reschedule appointments for any reason. We are happy to assist you. Tips for your recovery at home: Dont be alarmed by brownish or reddish blood or clots in your urine. This is a result of the procedure. This may occur off and on for weeks to months after the procedure but should continue to improve. Drink plenty of fluids during the day (enough to keep your urine very light colored). This will help keep a healthy flow of urine. Do not lift >25 lbs until your followup Avoid constipation. Please use a stool softener (Colace) for the first two weeks after your procedure Be sure to finish the antibiotics as prescribed. If you go home with a catheter, please wash tubing where it enters your body twice daily with mild soap (Dove or Dial). Once your catheter is removed, expect some blood in your urine and some burning when you urinate. You should have an appointment to have this removed, if you do not please call our office to arrange. Pending Studies at Discharge: Yes (pathology) Stand-Alone Forms: My [facility] [address], Smoking Cessation Medications and DC Order Prescriptions: New ciprofloxacin HCl 500 mg tablet 500 mg PO BID Qty: 10 0RF docusate sodium [Colace] 100 mg capsule 100 mg PO BID Qty: 60 0RF Rx Instructions: Take twice daily for 2 weeks, then as needed for constipation. phenazopyridine [Pyridium] 200 mg tablet 200 mg PO Q8H PRN (Reason: pain) Qty: 10 0RF Continued ciprofloxacin HCl 500 mg tablet 500 mg PO BID 4 Days Qty: 8 0RF sildenafil 100 mg tablet 100 mg PO DAILY PRN (Reason: sexual activity) Qty: 20 11RF Rx Instructions: administer 30 minutes to 4 hours before activity lorazepam [Ativan] 2 mg Tablet 2 mg PO HS tamsulosin [Flomax] 0.4 mg Capsule 0.4 mg PO HS Discharge Orders: Discharge Order (Routine); Ordered 02/28/23 Ordered By: Suzi Kothari Admission Data Admit Date/Time: 02/27/23 17:23 Attending Provider: Ruben Liu Admit Provider: Ruben Liu Primary Care Provider: Cora Gibbs Other Interventions: Discharge Summary Assessment (RN) Last Done: 02/28/23 10:07 Coding Level of Care Code 37365 IN/OBS DISCH 30 MIN/LESS Diagnoses Benign localized prostatic hyperplasia with lower urinary tract symptoms (LUTS) N40.1
--- NOTE | 2023-04-03 12:24 | Operative Report ---
PG Post Operative Report Pre & Post Diagnosis Operation Date: 02/27/23 14:30 Pre-Op Diagnosis: Acute urinary retention, Benign localized prostatic hyperplasia with lower urinary tract symptoms Post-Op Diagnosis: Acute urinary retention, Benign localized prostatic hyperplasia with lower urinary tract symptoms I identified the patient and participated in the time-out.: Yes Procedure Operation Date: 02/27/23 14:30 Actual Procedures p Transurethral Resection of the Prostate(Not Applicable) - Ruben Liu MD Surgeon Ruben Liu MD Glueline Worker none Estimated Blood Loss 5 Findings Consistent with Post-Op Diagnosis Specimens Prostate chips Description of Procedure The patient was identified in the preoperative holding area, appropriate informed consents were reviewed and completed and the patient was transferred to the operative suite. Upon arrival, appropriate antibiotics and anesthesia were administered and the patient was placed in dorsal lithotomy position and prepped and draped in sterile fashion. Begin the case to pass 26 [place] resectoscope with 30 degree lens and visual after peer inspection revealed a healthy-appearing urethra and an enlarged prostate. There is predominantly lateral lobe hypertrophy and some intravesical intrusion. I used a loop electrode to resect the bulk of the intravesical component as well as the left and right lateral lobes. I then used a button electrode to smooth the remaining tissue. All resected tissue was collected from the bladder and emptied. This specimen was passed off the table for pathology. I ensured excellent hemostasis and he appears to have a widely patent prostatic urethra at the conclusion of the case. A 22 [place] Cam[place] catheter was inserted with 30 cc placed in the balloon. He was reversed of anesthesia and taken to the recovery room in stable condition. I attest to the content of the Intraoperative Record and any orders documented therein. Any exceptions are noted below.
== END 2023-02-28 10:49 | disposition home or self-care (01) ==
LOC: 3W 12:26 → ASU 12:26